=== PATIENT | male | born 1940 | race Caucasian/White ===

== ENCOUNTER → 2016-08-27 | Outpatient (CLI) | payer MEDICARE, OTHER ==
[~2016-08-27] MED LIST: ALLO100T30 PO; ATOR20TA PO; GEMF600T3 PO; METF500T4 PO; PIOG45TA7 PO; POTA20TA14 PO; VALS80TA3 PO
== END | disposition home or self-care (01) ==
LOC: ROC 14:46
PROVIDERS: ATTEND Radiology Radiation Oncology
DX: C21.1 Malignant neoplasm of anal canal (principal)
CPT/HCPCS: G0463

== ENCOUNTER → 2016-12-18 | Outpatient (CLI) | payer MEDICARE, OTHER ==
[~2016-12-18] MED LIST changes: +OMNIPAQUE 350 MG/ML, 100ML BOTTLE ONE
== END | disposition home or self-care (01) ==
LOC: CFH 13:46
PROVIDERS: ATTEND Internal Medicine
DX: C21.1 Malignant neoplasm of anal canal (principal); M48.56XA Collapsed vertebra, not elsewhere classified, lumbar region, initial encounter for fracture; I70.0 Atherosclerosis of aorta; M25.451 Effusion, right hip; Z90.49 Acquired absence of other specified parts of digestive tract
CPT/HCPCS: 71260; 74177; Q9967

== ENCOUNTER 2017-04-05 08:58 | Inpatient (IN) | payer MEDICARE, OTHER ==
[~2017-04-05] VITALS: Ht 185.4 cm; Wt 85.6 kg
[~2017-04-05 08:58] MED LIST changes: -OMNIPAQUE 350 MG/ML, 100ML BOTTLE ONE; +PIOG45TA20 PO; -PIOG45TA7 PO
[2017-04-05 09:39] LABS: HEMATOCRIT 27.3 % (39.2-51.8); HEMOGLOBIN 8.9 g/dL (13.7-18.0); WHITE BLOOD COUNT 3.5 x10^3/uL (3.4-10)
[2017-04-05 09:49] LABS: ASPARTATE AMINO TRANSFERASE 29 U/L (15-37); BLOOD UREA NITROGEN 25 mg/dL (7-18)
[2017-04-05] MEDS ORDERED: LIDOCAINE 2%,20 ML JEL.PF.APP MM ONE (11:32)
[2017-04-05] MEDS ORDERED: ONDANSETRON 2MG/ML, 2ML IVPush PRN (12:30)
[2017-04-05] MEDS ORDERED: FUROSEMIDE 20 MG/2 ML IV SCH (12:30)
[2017-04-05] MEDS ORDERED: ONDANSETRON ODT 4 MG PO PRN (12:30)
[2017-04-05] MEDS ORDERED: DOCUSATE 100 MG CAPSULE PO PRN (12:30)
[2017-04-05] MEDS ORDERED: ACETAMINOPHEN 325 MG TABLET PO PRN (12:30)
[2017-04-05 12:45] VITALS: BP 117/66
[2017-04-05 12:50] VITALS: BP 117/66
[2017-04-05] MEDS ORDERED: DEXTROSE 4 GM TAB.CHEW PO PRN (13:00)
[2017-04-05] MEDS ORDERED: DEXTROSE 50%, 50ML SYRINGE IVPush PRN (13:00)
[2017-04-05] MEDS ORDERED: GLUCAGON 1 MG IM PRN (13:00)
[2017-04-05] MEDS ORDERED: MAGNESIUM SULFATE PMX 4GM/100M 100 ML IV ONE (13:30)
[2017-04-05] MEDS ORDERED: LIDOCAINE 2%, 20ML ONE (14:56)
[2017-04-05] MEDS: HEPARIN 5,000 UNITS/ML, 1ML SQ SCH ×2 (15:08→22:51)
[2017-04-05] MEDS: INSULIN ASPART 100 UNITS/ML, PEN SQ-INSULIN SCH ×2 (17:44→20:27)
[2017-04-05 18:05] LABS: CELLS COUNTED 105; DILUTION 1; WBC SQUARES COUNTED 10
[2017-04-05 19:01] VITALS: BP_SYST 119; BP_SYST 96; BP_DIAS 48; BP_DIAS 72
[2017-04-05] MEDS: POTASSIUM CHLORIDE 20 MEQ TAB.ER.PRT PO SCH (20:27)
[2017-04-05] MEDS: ATORVASTATIN 20 MG TABLET PO SCH (20:27)
[2017-04-05] MEDS: SODIUM CHLORIDE FLUSH 10ML SYR IVF SCH (20:28)
[2017-04-06 01:09] VITALS: BP 91/44
[2017-04-06 05:13] LABS: HEMATOCRIT 25.2 % (39.2-51.8); HEMOGLOBIN 8.3 g/dL (13.7-18.0); WHITE BLOOD COUNT 3.7 x10^3/uL (3.4-10)
[2017-04-06 05:35] LABS: BLOOD UREA NITROGEN 25 mg/dL (7-18)
[2017-04-06] MEDS: INSULIN ASPART 100 UNITS/ML, PEN SQ-INSULIN SCH ×4 (07:00→19:49)
[2017-04-06 07:35] VITALS: BP 109/63
[2017-04-06] MEDS: POTASSIUM CHLORIDE 20 MEQ TAB.ER.PRT PO SCH ×2 (07:35→21:55)
[2017-04-06] MEDS: HEPARIN 5,000 UNITS/ML, 1ML SQ SCH ×3 (07:35→21:56)
[2017-04-06] MEDS: SODIUM CHLORIDE FLUSH 10ML SYR IVF SCH ×2 (07:36→21:56)
[2017-04-06] MEDS ORDERED: VALSARTAN 80 MG TABLET PO SCH (09:00)
[2017-04-06 13:22] VITALS: BP 106/59
[2017-04-06 14:29] LABS: FERRITIN 31.3 ng/mL (26-388)
[2017-04-06 19:40] VITALS: BP 103/56
[2017-04-06] MEDS: ATORVASTATIN 20 MG TABLET PO SCH (21:55)
[2017-04-07 03:28] VITALS: BP 102/62
[2017-04-07 05:30] LABS: BLOOD UREA NITROGEN 25 mg/dL (7-18)
[2017-04-07] MEDS: INSULIN ASPART 100 UNITS/ML, PEN SQ-INSULIN SCH ×4 (07:00→20:49)
[2017-04-07] MEDS ORDERED: MAGNESIUM SULFATE PMX 2GM/50ML 50 ML IV ONE (07:30)
[2017-04-07 08:00] VITALS: BP 128/62
[2017-04-07] MEDS: SODIUM CHLORIDE FLUSH 10ML SYR IVF SCH ×2 (09:00→20:48)
[2017-04-07] MEDS: HEPARIN 5,000 UNITS/ML, 1ML SQ SCH ×3 (09:51→23:29)
[2017-04-07] MEDS: POTASSIUM CHLORIDE 20 MEQ TAB.ER.PRT PO SCH ×2 (09:51→20:48)
[2017-04-07] MEDS: FERROUS SULFATE 325 MG TABLET PO SCH (09:51)
[2017-04-07 13:06] VITALS: BP 99/57
[2017-04-07 20:00] VITALS: BP 100/42
[2017-04-07] MEDS: ATORVASTATIN 20 MG TABLET PO SCH (20:48)
[2017-04-08 02:00] VITALS: BP 105/41
[2017-04-08 05:30] LABS: HEMATOCRIT 25.2 % (39.2-51.8); HEMOGLOBIN 8.3 g/dL (13.7-18.0); WHITE BLOOD COUNT 3.1 x10^3/uL (3.4-10)
[2017-04-08 05:40] LABS: BLOOD UREA NITROGEN 23 mg/dL (7-18)
[2017-04-08] MEDS: INSULIN ASPART 100 UNITS/ML, PEN SQ-INSULIN SCH ×2 (07:00→11:39)
[2017-04-08 07:37] VITALS: BP 108/55
[2017-04-08] MEDS: HEPARIN 5,000 UNITS/ML, 1ML SQ SCH (07:43)
[2017-04-08] MEDS: FERROUS SULFATE 325 MG TABLET PO SCH (08:40)
[2017-04-08] MEDS: POTASSIUM CHLORIDE 20 MEQ TAB.ER.PRT PO SCH (08:41)
[2017-04-08] MEDS: SODIUM CHLORIDE FLUSH 10ML SYR IVF SCH (08:44)
[2017-04-08] MEDS ORDERED: FUROSEMIDE 20 MG/2 ML IV ONE (13:00)
[2017-04-08 13:40] VITALS: BP 99/62
[2017-04-08] MEDS ORDERED: SPIR50TA2 PO (14:45)
[2017-04-08] MEDS ORDERED: FURO-93 PO (14:45)
[2017-04-09] MEDS ORDERED: MAGNESIUM CHLORIDE 64 MG TABLET.DR PO SCH (09:00)
== END 2017-04-08 17:09 | disposition home health service (06) | DRG 682 ==
LOC: ED 10:49 → EDIP 11:18 → 4WST 12:42 → 3E 04-08 17:03
PROVIDERS: ADMIT Family Medicine; ATTEND Family Medicine
PROC: 0W9G3ZZ Drainage of Peritoneal Cavity, Percutaneous Approach (ICD-10-PCS; principal; 2017-04-05)
DX: N17.9 Acute kidney failure, unspecified (principal); E43 Unspecified severe protein-calorie malnutrition; R18.8 Other ascites; E87.70 Fluid overload, unspecified; K76.6 Portal hypertension; E83.42 Hypomagnesemia; D64.9 Anemia, unspecified; J98.11 Atelectasis; E11.9 Type 2 diabetes mellitus without complications; D72.819 Decreased white blood cell count, unspecified; E78.5 Hyperlipidemia, unspecified; I10 Essential (primary) hypertension; K62.7 Radiation proctitis; R09.02 Hypoxemia; M10.9 Gout, unspecified; N50.89 Other specified disorders of the male genital organs; Z66 Do not resuscitate; Z96.641 Presence of right artificial hip joint; Z85.048 Personal history of other malignant neoplasm of rectum, rectosigmoid junction, and anus; Z92.21 Personal history of antineoplastic chemotherapy; Z92.3 Personal history of irradiation; Z90.49 Acquired absence of other specified parts of digestive tract; Z88.7 Allergy status to serum and vaccine; Z79.84 Long term (current) use of oral hypoglycemic drugs; Z79.899 Other long term (current) drug therapy
CPT/HCPCS: 36415; 49083; 51702; 71010; 76700; 80048; 80053; 82042; 82150; 82607; 82728; 82746; 82962; 83010; 83540; 83550; 83615; 83690; 83735; 83880; 84100; 84157; 84466; 85025; 85045; 85610; 85730; 86704; 86706; 86708; 86803; 87070; 87205; 87340; 89051; 93005; 93306; 99285; J1644; J1815; J3490; J1940; J3475

== ENCOUNTER → 2017-05-10 | Outpatient (CLI) | payer MEDICARE, OTHER ==
[~2017-05-10] MED LIST changes: +FURO-93 PO; +SPIR50TA2 PO
== END | disposition home or self-care (01) ==
LOC: RAD 09:36
PROVIDERS: ATTEND Internal Medicine Gastroenterology
DX: N28.1 Cyst of kidney, acquired (principal); R16.1 Splenomegaly, not elsewhere classified; R18.8 Other ascites; Z85.048 Personal history of other malignant neoplasm of rectum, rectosigmoid junction, and anus
CPT/HCPCS: 76700

== ENCOUNTER 2017-05-24 14:11 | Inpatient (IN) | payer MEDICARE, OTHER ==
[~2017-05-24] VITALS: Ht 185.4 cm; Wt 74.8 kg
[2017-05-24] MEDS ORDERED: SODIUM CHLORIDE FLUSH 10ML SYR IVF ONE (14:30)
[2017-05-24] MEDS ORDERED: MORPHINE SULFATE 4 MG/ML, 1ML IVPush PRN (14:30)
[2017-05-24] MEDS ORDERED: ONDANSETRON 2MG/ML, 2ML IVPush ONE (14:30)
[2017-05-24 15:03] LABS: MICROSCOPIC NOT IND
[2017-05-24 15:08] LABS: CULTURE INDICATED? NO
[2017-05-24 15:09] LABS: ALANINE AMINOTRANSFERASE 13 U/L (12-78); ALBUMIN 2.4 g/dL (3.4-5.0); ANION GAP 10 mmol/L (5-15); CALCIUM 8.2 mg/dL (8.5-10.1); CHLORIDE 103 mmol/L (98-107); CREATININE 1.97 mg/dL (0.7-1.3)
[2017-05-24 15:11] LABS: ALKALINE PHOSPHATASE 92 U/L (45-117); BILIRUBIN,TOTAL 0.7 mg/dL (0.2-1.0); MEAN CORPUSCULAR HEMOGLOBIN 27.4 pg (27.5-34.5); MEAN CORPUSCULAR HGB CONC 32.8 g/dL (33.2-36.2); MEAN CORPUSCULAR VOLUME 83.4 fL (81-97); MEAN PLATELET VOLUME 6.8 fL (7.4-10.4); PLATELET COUNT 212 x10^3/uL (130-400); RED BLOOD COUNT 2.97 x10^6/uL (4.38-5.82); TOTAL PROTEIN 5.7 g/dL (6.4-8.2)
[2017-05-24] MEDS ORDERED: LIDOCAINE 1%, 10ML ONE (15:36)
[2017-05-24 15:49] LABS: MD MORPH REVIEW ONLY
[2017-05-24 15:50] LABS: BASOPHILS # (AUTO) 0.01 x10^3/uL (0-0.1); BASOPHILS % (AUTO) 0 % (0-1); EOSINOPHILS % (AUTO) 0 % (1-7); LYMPHOCYTES % (AUTO) 10 % (22-44); MONOCYTES # (AUTO) 0.51 x10^3/uL (0.2-0.8); MONOCYTES % (AUTO) 13 % (2-9); NEUTROPHILS # (AUTO) 3.09 x10^3/uL (1.8-6.8); NEUTROPHILS % (AUTO) 77 % (42-75)
[2017-05-24 15:51] LABS: ANISOCYTOSIS 2+
[2017-05-24 15:52] LABS: POLYCHROMASIA 1+
[2017-05-24 15:53] LABS: <PLATELET ESTIMATE> ADEQUATE; <PLT MORPHOLOGY> NORMAL PLT MORPH
[2017-05-24] MEDS ORDERED: CEFTRIAXONE PMX 2GM/50ML 50 ML IV ONE (18:30)
[2017-05-24] MEDS ORDERED: ALBUMIN HUMAN 25% 100 ML IV ONE (18:30)
[2017-05-24] MEDS ORDERED: ONDANSETRON 2MG/ML, 2ML ONE (18:39)
[2017-05-24] MEDS ORDERED: CEFTRIAXONE PMX 2GM/50ML 50 ML ONE (18:39)
[2017-05-24] MEDS ORDERED: ONDANSETRON ODT 4 MG PO PRN (20:30)
[2017-05-24] MEDS ORDERED: ONDANSETRON 2MG/ML, 2ML IVPush PRN (20:30)
[2017-05-24 20:45] VITALS: BP 103/54
[2017-05-24] MEDS: SODIUM CHLORIDE 0.9% 1,000 ML IV SCH (22:13)
[2017-05-24] MEDS: GEMFIBROZIL 600 MG TABLET PO SCH (22:13)
[2017-05-24] MEDS: HEPARIN 5,000 UNITS/ML, 1ML SQ SCH (22:13)
[2017-05-24] MEDS: ATORVASTATIN 20 MG TABLET PO SCH (22:13)
[2017-05-25 01:50] VITALS: BP 108/60
[2017-05-25 04:53] LABS: ALBUMIN 2.3 g/dL (3.4-5.0); ANION GAP 9 mmol/L (5-15); CALCIUM 7.8 mg/dL (8.5-10.1); CHLORIDE 107 mmol/L (98-107)
[2017-05-25 04:57] LABS: ALANINE AMINOTRANSFERASE 11 U/L (12-78); ALKALINE PHOSPHATASE 72 U/L (45-117); BILIRUBIN,TOTAL 0.4 mg/dL (0.2-1.0); TOTAL PROTEIN 4.9 g/dL (6.4-8.2)
[2017-05-25 04:58] LABS: MEAN CORPUSCULAR HEMOGLOBIN 27.6 pg (27.5-34.5); MEAN CORPUSCULAR HGB CONC 33.3 g/dL (33.2-36.2); MEAN PLATELET VOLUME 7.3 fL (7.4-10.4); PLATELET COUNT 138 x10^3/uL (130-400); RED BLOOD COUNT 2.69 x10^6/uL (4.38-5.82); RED CELL DISTRIBUTION WIDTH 22.8 % (9.4-14.8)
[2017-05-25] MEDS: HEPARIN 5,000 UNITS/ML, 1ML SQ SCH ×3 (04:59→19:57)
[2017-05-25 06:44] LABS: BASOPHILS # (AUTO) 0.02 x10^3/uL (0-0.1); BASOPHILS % (AUTO) 1 % (0-1); EOSINOPHILS % (AUTO) 0 % (1-7); LYMPHOCYTES # (AUTO) 0.31 x10^3/uL (1-3.4); LYMPHOCYTES % (AUTO) 11 % (22-44); MD SCAN; MONOCYTES # (AUTO) 0.38 x10^3/uL (0.2-0.8); MONOCYTES % (AUTO) 14 % (2-9); NEUTROPHILS # (AUTO) 2.14 x10^3/uL (1.8-6.8); NEUTROPHILS % (AUTO) 75 % (42-75)
[2017-05-25 07:42] VITALS: BP 115/40
[2017-05-25] MEDS: GEMFIBROZIL 600 MG TABLET PO SCH ×2 (08:43→19:56)
[2017-05-25] MEDS: SODIUM CHLORIDE 0.9% 1,000 ML IV SCH (08:43)
[2017-05-25 13:07] VITALS: BP 89/51
[2017-05-25] MEDS ORDERED: MAGNESIUM SULFATE PMX 2GM/50ML 50 ML IV ONE (13:30)
[2017-05-25 13:39] VITALS: BP 74/34
[2017-05-25] MEDS ORDERED: SODIUM CHLORIDE 0.9%, 250ML IVBOLUS ONE (14:00)
[2017-05-25] MEDS ORDERED: POTASSIUM CHLORIDE 20 MEQ TAB.ER.PRT PO ONE (15:00)
[2017-05-25] MEDS: CEFTRIAXONE PMX 2GM/50ML 50 ML IV SCH (18:00)
[2017-05-25 19:47] VITALS: BP 90/43
[2017-05-25] MEDS: ATORVASTATIN 20 MG TABLET PO SCH (19:56)
[2017-05-26 01:44] VITALS: BP 94/51
[2017-05-26] MEDS: HEPARIN 5,000 UNITS/ML, 1ML SQ SCH ×3 (04:45→20:21)
[2017-05-26 05:17] LABS: MEAN CORPUSCULAR HGB CONC 32.4 g/dL (33.2-36.2); MEAN CORPUSCULAR VOLUME 83.4 fL (81-97); PLATELET COUNT 133 x10^3/uL (130-400); RED BLOOD COUNT 2.76 x10^6/uL (4.38-5.82); RED CELL DISTRIBUTION WIDTH 22.4 % (9.4-14.8)
[2017-05-26 05:24] LABS: ALBUMIN 2.1 g/dL (3.4-5.0); ANION GAP 8 mmol/L (5-15); CALCIUM 7.9 mg/dL (8.5-10.1); CHLORIDE 108 mmol/L (98-107)
[2017-05-26 05:52] LABS: BASOPHILS # (AUTO) 0.02 x10^3/uL (0-0.1); BASOPHILS % (AUTO) 1 % (0-1); EOSINOPHILS % (AUTO) 0 % (1-7); LYMPHOCYTES # (AUTO) 0.46 x10^3/uL (1-3.4); LYMPHOCYTES % (AUTO) 15 % (22-44); MD SCAN; MONOCYTES # (AUTO) 0.39 x10^3/uL (0.2-0.8); MONOCYTES % (AUTO) 12 % (2-9); NEUTROPHILS # (AUTO) 2.29 x10^3/uL (1.8-6.8); NEUTROPHILS % (AUTO) 73 % (42-75)
[2017-05-26 05:55] LABS: ALANINE AMINOTRANSFERASE 10 U/L (12-78); ALKALINE PHOSPHATASE 69 U/L (45-117); BILIRUBIN,TOTAL 0.4 mg/dL (0.2-1.0); CREATININE 1.47 mg/dL (0.7-1.3); TOTAL PROTEIN 4.8 g/dL (6.4-8.2)
[2017-05-26 07:05] VITALS: BP 99/57
[2017-05-26] MEDS: GEMFIBROZIL 600 MG TABLET PO SCH ×2 (07:59→20:21)
[2017-05-26] MEDS ORDERED: FUROSEMIDE 20 MG TABLET PO SCH (09:00)
[2017-05-26] MEDS ORDERED: SPIRONOLACTONE 50 MG TABLET PO SCH (09:00)
[2017-05-26 12:14] LABS: INTERNATIONAL NORMALIZED RATIO 1.12 (0.93-1.1); PROTHROMBIN TIME 11.6 Seconds (9.6-11.5)
[2017-05-26 14:32] VITALS: BP 94/55
[2017-05-26] MEDS: CEFTRIAXONE PMX 2GM/50ML 50 ML IV SCH (17:55)
[2017-05-26 19:55] VITALS: BP 94/44
[2017-05-26] MEDS: ATORVASTATIN 20 MG TABLET PO SCH (20:21)
[2017-05-27 01:49] VITALS: BP 101/54
[2017-05-27 03:49] LABS: ANION GAP 9 mmol/L (5-15); CALCIUM 7.9 mg/dL (8.5-10.1); CHLORIDE 106 mmol/L (98-107)
[2017-05-27 03:50] LABS: CREATININE 1.29 mg/dL (0.7-1.3)
[2017-05-27 03:51] LABS: MEAN CORPUSCULAR HEMOGLOBIN 27.2 pg (27.5-34.5); MEAN CORPUSCULAR HGB CONC 32.7 g/dL (33.2-36.2); MEAN CORPUSCULAR VOLUME 83.2 fL (81-97); PLATELET COUNT 140 x10^3/uL (130-400); RED BLOOD COUNT 2.81 x10^6/uL (4.38-5.82); RED CELL DISTRIBUTION WIDTH 23.3 % (9.4-14.8)
[2017-05-27] MEDS: HEPARIN 5,000 UNITS/ML, 1ML SQ SCH (05:00)
[2017-05-27 05:09] LABS: BASOPHILS # (AUTO) 0.02 x10^3/uL (0-0.1); BASOPHILS % (AUTO) 1 % (0-1); EOSINOPHILS % (AUTO) 0 % (1-7); LYMPHOCYTES # (AUTO) 0.41 x10^3/uL (1-3.4); LYMPHOCYTES % (AUTO) 11 % (22-44); MD MORPH REVIEW ONLY; MONOCYTES # (AUTO) 0.39 x10^3/uL (0.2-0.8); MONOCYTES % (AUTO) 11 % (2-9); NEUTROPHILS # (AUTO) 2.89 x10^3/uL (1.8-6.8); NEUTROPHILS % (AUTO) 78 % (42-75)
[2017-05-27 05:10] LABS: ANISOCYTOSIS 2+; POLYCHROMASIA 1+
[2017-05-27 05:11] LABS: OVALOCYTES 1+; TEAR DROPS 1+
[2017-05-27 05:14] LABS: <PLATELET ESTIMATE> ADEQUATE
[2017-05-27 05:15] LABS: <PLT MORPHOLOGY> NORMAL PLT MORPH
[2017-05-27] MEDS: GEMFIBROZIL 600 MG TABLET PO SCH (07:46)
[2017-05-27 07:50] VITALS: BP 100/64
== END 2017-05-27 12:50 | disposition home health service (06) | DRG 432 ==
LOC: ED 18:16 → EDIP 19:32 → 3NW 19:40 → DCLOUNGE 05-27 12:50
PROVIDERS: ADMIT Family Medicine; ATTEND Family Medicine
PROC: 0W9G3ZZ Drainage of Peritoneal Cavity, Percutaneous Approach (ICD-10-PCS; principal; 2017-05-24)
DX: K74.69 Other cirrhosis of liver (principal); Q25.72 Congenital pulmonary arteriovenous malformation; N17.9 Acute kidney failure, unspecified; K65.2 Spontaneous bacterial peritonitis; K76.6 Portal hypertension; D64.9 Anemia, unspecified; R18.8 Other ascites; E11.9 Type 2 diabetes mellitus without complications; D72.829 Elevated white blood cell count, unspecified; E78.5 Hyperlipidemia, unspecified; I10 Essential (primary) hypertension; M10.9 Gout, unspecified; T50.2X5A Adverse effect of carbonic-anhydrase inhibitors, benzothiadiazides and other diuretics, initial encounter; Z96.641 Presence of right artificial hip joint; Z60.2 Problems related to living alone; Z88.7 Allergy status to serum and vaccine; Z79.84 Long term (current) use of oral hypoglycemic drugs; Y92.89 Other specified places as the place of occurrence of the external cause; Z80.0 Family history of malignant neoplasm of digestive organs; Z85.048 Personal history of other malignant neoplasm of rectum, rectosigmoid junction, and anus; Z92.21 Personal history of antineoplastic chemotherapy; Z92.3 Personal history of irradiation; Z90.49 Acquired absence of other specified parts of digestive tract; Z80.1 Family history of malignant neoplasm of trachea, bronchus and lung; Z79.899 Other long term (current) drug therapy
CPT/HCPCS: 36415; 49083; 71045; 80048; 80053; 81003; 82042; 82728; 83540; 83550; 83615; 83690; 84466; 85025; 85610; 87070; 87205; 89051; 93005; 93975; 96365; 96375; J0696; J1644; J2405; J3490; P9047; J7030; J7050

== ENCOUNTER 2017-06-11 15:38 | Inpatient (IN) | payer MEDICARE, OTHER ==
[~2017-06-11] VITALS: Ht 182.9 cm; Wt 82.8 kg
[2017-06-11] MEDS ORDERED: SODIUM CHLORIDE FLUSH 10ML SYR IVF ONE (16:30)
[2017-06-11] MEDS ORDERED: SODIUM CHLORIDE 0.9% 1,000ML IVBOLUS ONE (16:30)
[2017-06-11 16:51] LABS: BASOPHILS # (AUTO) 0.03 x10^3/uL (0-0.1); BASOPHILS % (AUTO) 1 % (0-1); EOSINOPHILS # (AUTO) 0.09 x10^3/uL (0-0.4); EOSINOPHILS % (AUTO) 2 % (1-7); LYMPHOCYTES # (AUTO) 0.44 x10^3/uL (1-3.4); LYMPHOCYTES % (AUTO) 10 % (22-44); MD MORPH REVIEW ONLY; MEAN CORPUSCULAR HEMOGLOBIN 27.7 pg (27.5-34.5); MEAN CORPUSCULAR HGB CONC 33.1 g/dL (33.2-36.2); MEAN CORPUSCULAR VOLUME 83.7 fL (81-97); MEAN PLATELET VOLUME 6.9 fL (7.4-10.4); MONOCYTES # (AUTO) 0.44 x10^3/uL (0.2-0.8); MONOCYTES % (AUTO) 10 % (2-9); NEUTROPHILS # (AUTO) 3.44 x10^3/uL (1.8-6.8); NEUTROPHILS % (AUTO) 78 % (42-75); PLATELET COUNT 265 x10^3/uL (130-400); RED BLOOD COUNT 3.42 x10^6/uL (4.38-5.82); RED CELL DISTRIBUTION WIDTH 22.8 % (9.4-14.8)
[2017-06-11 17:02] LABS: ALANINE AMINOTRANSFERASE 14 U/L (12-78); ALBUMIN 2.6 g/dL (3.4-5.0); ANION GAP 9 mmol/L (5-15); CALCIUM 8.4 mg/dL (8.5-10.1); CHLORIDE 106 mmol/L (98-107); CREATININE 1.64 mg/dL (0.7-1.3)
[2017-06-11 17:04] LABS: ALKALINE PHOSPHATASE 103 U/L (45-117); BILIRUBIN,TOTAL 0.4 mg/dL (0.2-1.0); TOTAL PROTEIN 6.3 g/dL (6.4-8.2)
[2017-06-11 17:23] LABS: TROPONIN I < 0.015 ng/mL (0.000-0.045)
[2017-06-11 17:28] LABS: <RBC MORPHOLOGY> NORMAL
[2017-06-11] MEDS ORDERED: SODIUM CHLORIDE 0.9%, 500ML IVBOLUS ONE (17:30)
[2017-06-11 17:31] LABS: CRENATED 1+; OVALOCYTES 1+; POLYCHROMASIA 1+; SCHISTOCYTES 1+
[2017-06-11 17:37] LABS: <PLATELET ESTIMATE> ADEQUATE; <PLT MORPHOLOGY> NORMAL PLT MORPH
[2017-06-11] MEDS ORDERED: DEXTROSE 4 GM TAB.CHEW PO PRN (19:30)
[2017-06-11] MEDS ORDERED: DEXTROSE 50%, 50ML SYRINGE IVPush PRN (19:30)
[2017-06-11] MEDS ORDERED: GLUCAGON 1 MG IM PRN (19:30)
[2017-06-11] MEDS: SODIUM CHLORIDE FLUSH 10ML SYR IVF SCH (21:00)
[2017-06-11] MEDS: INSULIN LISPRO 100 UNITS/ML, PEN SQ-INSULIN SCH (21:00)
[2017-06-11 21:04] VITALS: BP 106/65
[2017-06-11] MEDS: HEPARIN 5,000 UNITS/ML, 1ML SQ SCH (22:35)
[2017-06-12] VITALS (7 sets, daily range): BP systolic 88–98; BP diastolic 44–59
[2017-06-12] MEDS: POTASSIUM CHLORIDE 10 MEQ in SODIUM CHLORIDE 0.9% 1,000 ML IV SCH ×2 (03:21→04:54)
[2017-06-12] MEDS: HEPARIN 5,000 UNITS/ML, 1ML SQ SCH ×2 (04:53→15:59)
[2017-06-12 05:37] LABS: ALBUMIN 2.1 g/dL (3.4-5.0); ANION GAP 9 mmol/L (5-15); CALCIUM 7.7 mg/dL (8.5-10.1); CHLORIDE 108 mmol/L (98-107)
[2017-06-12 05:48] LABS: ALANINE AMINOTRANSFERASE 9 U/L (12-78); ALKALINE PHOSPHATASE 87 U/L (45-117); BILIRUBIN,TOTAL 0.5 mg/dL (0.2-1.0); CREATININE 1.47 mg/dL (0.7-1.3); TOTAL PROTEIN 4.9 g/dL (6.4-8.2)
[2017-06-12 05:49] LABS: MEAN CORPUSCULAR HEMOGLOBIN 27.9 pg (27.5-34.5); MEAN CORPUSCULAR HGB CONC 33.6 g/dL (33.2-36.2); MEAN CORPUSCULAR VOLUME 82.9 fL (81-97); MEAN PLATELET VOLUME 6.9 fL (7.4-10.4); PLATELET COUNT 165 x10^3/uL (130-400); RED BLOOD COUNT 2.84 x10^6/uL (4.38-5.82); RED CELL DISTRIBUTION WIDTH 22.3 % (9.4-14.8)
[2017-06-12 06:55] LABS: BASOPHILS # (AUTO) 0.01 x10^3/uL (0-0.1); BASOPHILS % (AUTO) 1 % (0-1); EOSINOPHILS % (AUTO) 0 % (1-7); LYMPHOCYTES # (AUTO) 0.34 x10^3/uL (1-3.4); LYMPHOCYTES % (AUTO) 12 % (22-44); MD SCAN; MONOCYTES # (AUTO) 0.37 x10^3/uL (0.2-0.8); MONOCYTES % (AUTO) 13 % (2-9); NEUTROPHILS # (AUTO) 2.05 x10^3/uL (1.8-6.8); NEUTROPHILS % (AUTO) 74 % (42-75)
[2017-06-12] MEDS: INSULIN LISPRO 100 UNITS/ML, PEN SQ-INSULIN SCH ×3 (07:00→16:02)
[2017-06-12] MEDS: SODIUM CHLORIDE FLUSH 10ML SYR IVF SCH (09:00)
== END 2017-06-12 17:50 | disposition home or self-care (01) | DRG 432 ==
LOC: ED 17:44 → EDIP 17:45 → ED 18:05 → 3NW 18:50
PROVIDERS: ADMIT Student in an Organized Health Care Education/Training Program; ATTEND Student in an Organized Health Care Education/Training Program
DX: K74.69 Other cirrhosis of liver (principal); E43 Unspecified severe protein-calorie malnutrition; N17.9 Acute kidney failure, unspecified; I95.9 Hypotension, unspecified; R18.8 Other ascites; E11.22 Type 2 diabetes mellitus with diabetic chronic kidney disease; E86.0 Dehydration; D64.9 Anemia, unspecified; E78.5 Hyperlipidemia, unspecified; E86.1 Hypovolemia; I12.9 Hypertensive chronic kidney disease with stage 1 through stage 4 chronic kidney disease, or unspecified chronic kidney disease; K74.60 Unspecified cirrhosis of liver; N18.9 Chronic kidney disease, unspecified; Z66 Do not resuscitate; Z85.048 Personal history of other malignant neoplasm of rectum, rectosigmoid junction, and anus; Z92.21 Personal history of antineoplastic chemotherapy; Z92.3 Personal history of irradiation; Z88.7 Allergy status to serum and vaccine
CPT/HCPCS: 36415; 80053; 82962; 83690; 83735; 84100; 84443; 84484; 85025; 93005; J1644; J3480; J7030

== ENCOUNTER → 2017-06-23 | Outpatient (CLI) | payer MEDICARE, OTHER ==
[~2017-06-23] MED LIST changes: +LIDOCAINE 1%, 20ML ONE
== END ==
LOC: RAD 12:08
PROVIDERS: ATTEND Internal Medicine Gastroenterology
DX: K74.60 Unspecified cirrhosis of liver (principal); R18.8 Other ascites; R10.9 Unspecified abdominal pain
CPT/HCPCS: 49083; J3490

== ENCOUNTER 2017-07-14 08:44 | Day surgery (SDC) | payer MEDICARE, OTHER ==
[~2017-07-14] VITALS: Ht 182.9 cm; Wt 77.4 kg
[~2017-07-14 08:44] MED LIST changes: -LIDOCAINE 1%, 20ML ONE
[2017-07-14] MEDS ORDERED: SODIUM CHLORIDE 0.9% 1,000 ML IV SCH (09:34)
[2017-07-14 09:35] VITALS: BP 101/60
[2017-07-14] MEDS ORDERED: OMEP40CA6 PO (09:40)
[2017-07-14 10:31] LABS: INTERNATIONAL NORMALIZED RATIO 1.17 (0.93-1.1)
[2017-07-14] MEDS ORDERED: VISIPAQUE 270 MG/ML, 50ML BOTTLE ONE (11:00)
[2017-07-14] MEDS ORDERED: NALOXONE 1 MG/ML, 2ML ONE (11:05)
[2017-07-14] MEDS ORDERED: MIDAZOLAM 1 MG/ML, 2ML ONE ×2 (11:05)
[2017-07-14] MEDS ORDERED: FENTANYL PF 100 MCG/2ML ONE (11:05)
[2017-07-14] MEDS ORDERED: FLUMAZENIL 0.1 MG/1 ML, 5ML ONE (11:05)
[2017-07-14] MEDS ORDERED: LIDOCAINE 1%, 20ML ONE (11:17)
== END 2017-07-14 15:15 ==
LOC: OUT 08:44
PROVIDERS: ATTEND Internal Medicine Gastroenterology
DX: K74.60 Unspecified cirrhosis of liver (principal); R18.8 Other ascites; Z90.49 Acquired absence of other specified parts of digestive tract; E11.9 Type 2 diabetes mellitus without complications; Z98.890 Other specified postprocedural states; Z88.8 Allergy status to other drugs, medicaments and biological substances
CPT/HCPCS: 36415; 47000; 49083; 75970; 76937; 82962; 85610; 88307; 88313; 99156; 99157; C1751; C1769; C1894; J2250; J3010; J3490; J7030; Q9966; J2310

== ENCOUNTER → 2017-08-11 | Outpatient (CLI) | payer MEDICARE, OTHER ==
[~2017-08-11] MED LIST changes: +ALBUMIN HUMAN 25%, 25GM/100ML ONE; +LIDOCAINE 2%, 20ML ONE; +OMEP40CA6 PO
== END | disposition home or self-care (01) ==
LOC: RAD 09:31
PROVIDERS: ATTEND Internal Medicine Gastroenterology
DX: K74.60 Unspecified cirrhosis of liver (principal)
CPT/HCPCS: 49083; J3490; P9047